=== PATIENT | female | born 1995 | race African-American/Black ===

== ENCOUNTER 2022-07-19 00:15 | Emergency (ER) | payer BC ==
[2022-07-19 00:34] VITALS: TEMP 99; BMI 25.8
[2022-07-19] MEDS ORDERED: ACETAMINOPHEN 325 MG TABLET (FP) PO ONE (01:55)
[2022-07-19] MEDS ORDERED: ACETAMINOPHEN 325 MG TABLET (FP) ONE (02:16)
[2022-07-19 02:29] VITALS: BP 130/70; PULSE 98; RESP 18
== END 2022-07-19 02:52 | disposition home or self-care (01) ==
LOC: JER 00:15
DX: J11.1 Influenza due to unidentified influenza virus with other respiratory manifestations (principal)
CPT/HCPCS: 0241U-QW; 93005; 93010; 99284-25